=== PATIENT | female | born 1935 | race Caucasian/White ===

== ENCOUNTER 2023-04-04 13:32 | Inpatient (IN) | payer OTHER, BC ==
[2023-04-04 15:00] VITALS: BMI 70.4
[2023-04-04 17:23] LABS: BASO % 1.1 % (0-2.0); HEMATOCRIT 27.4 % (32.4-45.2); HEMOGLOBIN 9.4 GM/dL (10.7-15.3); LYMPH % 21.3 % (8-40); MCH 33.1 pg (25.7-33.7); MCHC 34.4 g/dl (32.0-36.0); MEAN CELL VOLUME 96.2 fl (80-96); MEAN PLT VOLUME 8.6 fl (7.5-11.1); MONO % 8.9 % (3.8-10.2); NEUT % 57.7 % (42.8-82.8); PLATELET COUNT 150 10^3/uL (134-434); RBC 2.84 M/mm3 (3.60-5.2); RDW 13.4 % (11.6-15.6); WHITE BLOOD COUNT 6.2 K/mm3 (4.0-10.0)
[2023-04-04 17:38] LABS: INR 1.01 (0.83-1.09); PROTHROMBIN TIME (PATIENT) 11.7 SEC (9.7-13.0)
[2023-04-04 17:40] LABS: ACTIVATED PTT 28.6 SECONDS (25.2-36.5)
[2023-04-04 17:41] LABS: CALCIUM 8.7 mg/dL (8.5-10.1)
[2023-04-04 17:42] LABS: ALBUMIN 3.4 g/dl (3.4-5.0); BLOOD UREA NITROGEN 54.6 mg/dL (7-18)
[2023-04-04 17:45] LABS: CREATININE 6.9 mg/dL (0.55-1.3)
[2023-04-04 17:46] LABS: TOT PROT 5.9 g/dl (6.4-8.2)
[2023-04-04 17:47] LABS: BILIRUBIN,TOTAL 0.9 mg/dL (0.2-1)
[2023-04-04] MEDS: HEPARIN NA (PORCINE) 5,000 UNITS/ML 1ML VIAL SQ SCH (23:10)
[2023-04-05] MEDS: HEPARIN NA (PORCINE) 5,000 UNITS/ML 1ML VIAL SQ SCH ×3 (06:52→22:46)
[2023-04-05 09:00] VITALS: RESP 18
[2023-04-05] MEDS ORDERED: SODIUM CHLORIDE 250 ML IV PRN (09:05)
[2023-04-05] MEDS ORDERED: HEPARIN NA (PORCINE) 5,000 UNITS/ML 1ML VIAL IVPUSH ONE ×2 (09:15→16:45)
[2023-04-05 09:26] LABS: HEMATOCRIT 25.2 % (32.4-45.2); HEMOGLOBIN 8.5 GM/dL (10.7-15.3); MCH 32.7 pg (25.7-33.7); MCHC 33.8 g/dl (32.0-36.0); MEAN CELL VOLUME 96.8 fl (80-96); MEAN PLT VOLUME 8.5 fl (7.5-11.1); PLATELET COUNT 141 10^3/uL (134-434); RDW 13.1 % (11.6-15.6); WHITE BLOOD COUNT 5.7 K/mm3 (4.0-10.0)
[2023-04-05 09:51] LABS: CHLORIDE 99 mmol/L (98-107); POTASSIUM 3.9 mmol/L (3.5-5.1); SODIUM 137 mmol/L (136-145)
[2023-04-05 09:52] LABS: CALCIUM 7.9 mg/dL (8.5-10.1)
[2023-04-05 09:54] LABS: ANION GAP 7 mmol/L (4-13); BLOOD UREA NITROGEN 62.4 mg/dL (7-18); CO2 31 mmol/L (21-32); GLUCOSE,RANDOM 103 mg/dL (74-106); MAGNESIUM 1.7 mg/dL (1.8-2.4)
[2023-04-05 10:00] LABS: CREATININE 7.6 mg/dL (0.55-1.3)
[2023-04-06] MEDS: HEPARIN NA (PORCINE) 5,000 UNITS/ML 1ML VIAL SQ SCH ×4 (05:48→22:32)
[2023-04-07] MEDS: HEPARIN NA (PORCINE) 5,000 UNITS/ML 1ML VIAL SQ SCH (05:45)
[2023-04-07] MEDS ORDERED: SODIUM CHLORIDE 250 ML IV PRN (11:29)
[2023-04-07] MEDS ORDERED: HEPARIN NA (PORCINE) 5,000 UNITS/ML 1ML VIAL IVPUSH ONE (11:30)
[2023-04-07] MEDS ORDERED: EPOETIN ALFA-EPBX 10,000 UNIT/ML VIAL SQ ONE (12:00)
[2023-04-07 12:01] VITALS: TEMP 97.5
[2023-04-07 13:10] VITALS: BP 115/63; PULSE 62
== END 2023-04-07 15:56 | DRG 314 ==
LOC: JER 13:32 → JERBED 19:55 → J5S 04-05 00:34
PROVIDERS: ADMIT Internal Medicine; ATTEND Internal Medicine
PROC: 5A1D70Z Performance of Urinary Filtration, Intermittent, Less than 6 Hours Per Day (ICD-10-PCS; principal; 2023-04-04)
DX: T82.590A Other mechanical complication of surgically created arteriovenous fistula, initial encounter (principal); N18.6 End stage renal disease; I12.0 Hypertensive chronic kidney disease with stage 5 chronic kidney disease or end stage renal disease; Y83.8 Other surgical procedures as the cause of abnormal reaction of the patient, or of later complication, without mention of misadventure at the time of the procedure; E03.9 Hypothyroidism, unspecified; I10 Essential (primary) hypertension; K21.9 Gastro-esophageal reflux disease without esophagitis; M10.9 Gout, unspecified; I25.10 Atherosclerotic heart disease of native coronary artery without angina pectoris; I25.2 Old myocardial infarction; Z99.2 Dependence on renal dialysis; Z95.1 Presence of aortocoronary bypass graft; D64.9 Anemia, unspecified
CPT/HCPCS: 36415; 80048; 80053; 83735; 84100; 85025; 85027; 85610; 85730; 86704; 86705; 86803; 86850; 86900; 86901; 87340; 87517; 87635; 93005; 93010; 93971; 99285-25; J1644; Q5106

== ENCOUNTER 2023-04-11 14:13 | Emergency (ER) | payer OTHER, BC ==
[2023-04-11 14:49] VITALS: RESP 20; BMI 30.7
[2023-04-11 16:50] LABS: RBC 2.73 M/mm3 (3.60-5.2); RDW 13.5 % (11.6-15.6); WHITE BLOOD COUNT 6.8 K/mm3 (4.0-10.0)
[2023-04-11 17:01] LABS: INR 1.03 (0.83-1.09); PROTHROMBIN TIME (PATIENT) 11.9 SEC (9.7-13.0)
[2023-04-11 17:04] LABS: ACTIVATED PTT 27.4 SECONDS (25.2-36.5); HEMATOCRIT 26.4 % (32.4-45.2); HEMOGLOBIN 8.9 GM/dL (10.7-15.3); LYMPH % 19.1 % (8-40); MCH 32.6 pg (25.7-33.7); MCHC 33.7 g/dl (32.0-36.0); MEAN CELL VOLUME 96.8 fl (80-96); MEAN PLT VOLUME 8.7 fl (7.5-11.1); MONO % 9.2 % (3.8-10.2); NEUT % 60.7 % (42.8-82.8); PLATELET COUNT 158 10^3/uL (134-434)
[2023-04-11 17:20] LABS: CHLORIDE 97 mmol/L (98-107); POTASSIUM 4.2 mmol/L (3.5-5.1); SODIUM 137 mmol/L (136-145)
[2023-04-11 17:22] LABS: CALCIUM 8.1 mg/dL (8.5-10.1); GLUCOSE,RANDOM 93 mg/dL (74-106)
[2023-04-11 17:23] LABS: ALBUMIN 3.2 g/dl (3.4-5.0); ANION GAP 9 mmol/L (4-13); BLOOD UREA NITROGEN 60.5 mg/dL (7-18); CO2 31 mmol/L (21-32); MAGNESIUM 1.9 mg/dL (1.8-2.4)
[2023-04-11 17:26] LABS: PHOSPHOROUS 3.7 mg/dL (2.5-4.9); SGOT/AST 16 U/L (15-37); SGPT/ALT 18 U/L (13-61)
[2023-04-11 17:27] LABS: BILIRUBIN,TOTAL 0.7 mg/dL (0.2-1); TOT PROT 5.7 g/dl (6.4-8.2)
[2023-04-11 17:28] LABS: ALK PHOS 86 U/L (45-117); CREATININE 7.9 mg/dL (0.55-1.3)
[2023-04-11 19:26] VITALS: PULSE 64; TEMP 97.8
[2023-04-11 21:11] VITALS: BP 136/68
== END 2023-04-12 00:51 ==
LOC: JER 14:13
DX: T82.590A Other mechanical complication of surgically created arteriovenous fistula, initial encounter (principal); I12.0 Hypertensive chronic kidney disease with stage 5 chronic kidney disease or end stage renal disease; N18.6 End stage renal disease; Z99.2 Dependence on renal dialysis
CPT/HCPCS: 36415; 80053; 83735; 84100; 85025; 85610; 85730; 93005; 93010; 93971; 99285-25

== ENCOUNTER 2023-07-04 17:34 | Observation (INO) | payer OTHER, BC ==
[2023-07-04 18:05] VITALS: BMI 30.6
[2023-07-04 19:11] LABS: BASO % 1.4 % (0-2.0); EOS % 8.8 % (0-4.5); HEMATOCRIT 22.2 % (32.4-45.2); HEMOGLOBIN 7.4 GM/dL (10.7-15.3); LYMPH % 20.1 % (8-40); MCH 32.6 pg (25.7-33.7); MCHC 33.5 g/dl (32.0-36.0); MEAN CELL VOLUME 97.5 fl (80-96); NEUT % 60.7 % (42.8-82.8); RBC 2.28 M/mm3 (3.60-5.2); RDW 14.2 % (11.6-15.6)
[2023-07-04 19:23] LABS: WHITE BLOOD COUNT 10.8 K/mm3 (4.0-10.0)
[2023-07-04 19:28] LABS: ALBUMIN 2.9 g/dl (3.4-5.0); BLOOD UREA NITROGEN 36.6 mg/dL (7-18); CALCIUM 8.5 mg/dL (8.5-10.1); MAGNESIUM 2.2 mg/dL (1.8-2.4)
[2023-07-04 19:31] LABS: CREATININE 6.6 mg/dL (0.55-1.3); PHOSPHOROUS 3.1 mg/dL (2.5-4.9)
[2023-07-04 19:33] LABS: BILIRUBIN,TOTAL 0.6 mg/dL (0.2-1); TOT PROT 5.7 g/dl (6.4-8.2)
[2023-07-04 22:19] LABS: INR 0.98 (0.83-1.09); PROTHROMBIN TIME (PATIENT) 11.4 SEC (9.7-13.0)
[2023-07-04 22:21] LABS: ACTIVATED PTT 20.9 SECONDS (25.2-36.5)
[2023-07-04] MEDS: HEPARIN NA (PORCINE) 5,000 UNITS/ML 1ML VIAL SQ SCH (23:05)
[2023-07-05] MEDS ORDERED: HEPARIN NA (PORCINE) 5,000 UNITS/ML 1ML VIAL ONE (06:01)
[2023-07-05] MEDS: HEPARIN NA (PORCINE) 5,000 UNITS/ML 1ML VIAL SQ SCH ×3 (06:14→21:47)
[2023-07-05 08:44] LABS: POTASSIUM 3.8 mmol/L (3.5-5.1)
[2023-07-05 08:45] LABS: BLOOD UREA NITROGEN 36.5 mg/dL (7-18); CALCIUM 8.2 mg/dL (8.5-10.1)
[2023-07-05 08:46] LABS: MAGNESIUM 2.2 mg/dL (1.8-2.4)
[2023-07-05 08:49] LABS: CREATININE 6.9 mg/dL (0.55-1.3)
[2023-07-05] MEDS ORDERED: SODIUM CHLORIDE 250 ML IV PRN (10:50)
[2023-07-05 10:59] LABS: HEMATOCRIT 23.8 % (32.4-45.2); HEMOGLOBIN 8.1 GM/dL (10.7-15.3); MCH 32.9 pg (25.7-33.7); MCHC 33.9 g/dl (32.0-36.0); RBC 2.45 M/mm3 (3.60-5.2); RDW 14.2 % (11.6-15.6)
[2023-07-05 11:10] LABS: WHITE BLOOD COUNT 9.4 K/mm3 (4.0-10.0)
[2023-07-05] MEDS ORDERED: EPOETIN ALFA-EPBX 10,000 UNIT/ML VIAL SQ ONE (11:30)
[2023-07-06] MEDS: HEPARIN NA (PORCINE) 5,000 UNITS/ML 1ML VIAL SQ SCH ×3 (05:21→21:47)
[2023-07-06] MEDS: CLOPIDOGREL BISULFATE 75 MG TABLET (FP) PO SCH (09:45)
[2023-07-06 10:18] LABS: BASO % 1.2 % (0-2.0); EOS % 8.8 % (0-4.5); HEMATOCRIT 26.1 % (32.4-45.2); HEMOGLOBIN 8.7 GM/dL (10.7-15.3); LYMPH % 24.1 % (8-40); MCH 32.1 pg (25.7-33.7); MCHC 33.5 g/dl (32.0-36.0); MEAN CELL VOLUME 95.8 fl (80-96); MEAN PLT VOLUME 8.4 fl (7.5-11.1); MONO % 8.2 % (3.8-10.2); NEUT % 57.7 % (42.8-82.8); PLATELET COUNT 167 10^3/uL (134-434); RBC 2.72 M/mm3 (3.60-5.2); RDW 15.8 % (11.6-15.6); WHITE BLOOD COUNT 6.8 K/mm3 (4.0-10.0)
[2023-07-06 10:27] LABS: POTASSIUM 3.6 mmol/L (3.5-5.1)
[2023-07-06 10:29] LABS: ALBUMIN 2.7 g/dl (3.4-5.0); BLOOD UREA NITROGEN 25.9 mg/dL (7-18); CALCIUM 8.1 mg/dL (8.5-10.1)
[2023-07-06 10:32] LABS: CREATININE 5.1 mg/dL (0.55-1.3)
[2023-07-06 10:34] LABS: BILIRUBIN,TOTAL 0.9 mg/dL (0.2-1); TOT PROT 5.3 g/dl (6.4-8.2)
[2023-07-06] MEDS ORDERED: ATORVASTATIN CA 20 MG TABLET (FP) PO SCH (22:00)
[2023-07-07] MEDS: HEPARIN NA (PORCINE) 5,000 UNITS/ML 1ML VIAL SQ SCH ×2 (06:02→14:16)
[2023-07-07] MEDS ORDERED: LEVOTHYROXINE NA 88 MCG TABLET (FP) PO SCH (07:00)
[2023-07-07] MEDS: CLOPIDOGREL BISULFATE 75 MG TABLET (FP) PO SCH (09:54)
[2023-07-07 11:00] VITALS: PULSE 67
[2023-07-07 15:26] VITALS: BP 149/60; RESP 18; TEMP 98.6
== END 2023-07-07 16:24 ==
LOC: JER 17:34 → JERBED 21:23 → J5S 07-05 08:43
PROVIDERS: ADMIT Internal Medicine; ATTEND Internal Medicine
PROC: 3E023GC Introduction of Other Therapeutic Substance into Muscle, Percutaneous Approach (ICD-10-PCS; principal; 2023-07-04)
PROC: 30233N1 Transfusion of Nonautologous Red Blood Cells into Peripheral Vein, Percutaneous Approach (ICD-10-PCS; 2023-07-04)
DX: D64.9 Anemia, unspecified (principal); R01.1 Cardiac murmur, unspecified; Z99.2 Dependence on renal dialysis; M10.9 Gout, unspecified; K21.9 Gastro-esophageal reflux disease without esophagitis; N18.6 End stage renal disease; E03.9 Hypothyroidism, unspecified; I21.4 Non-ST elevation (NSTEMI) myocardial infarction; Z88.0 Allergy status to penicillin
CPT/HCPCS: 36415; 36430; 71045-TC-FY; 80048; 80053; 82272; 83735; 84100; 85025; 85027; 85610; 85730; 86850; 86900; 86901; 86922; 87340; 87635; 93005; 93010; 96372; 99285-25; G0378; J1644; P9038; P9058; Q5106